=== PATIENT | female | born 1995 | race Caucasian/White ===

== ENCOUNTER 2016-12-29 16:47 | Emergency (ER) | payer BC ==
[~2016-12-29] VITALS: Ht 175.3 cm; Wt 73.5 kg
[~2016-12-29 16:47] MED LIST: HYDR-971 PO; IBUP-1007 PO; NAPR550T PO; NORG1TAB6 PO
[2016-12-29 17:06] VITALS: BP 103/65
[2016-12-29 17:21] LABS: BILIRUBIN,URINE NEGATIVE (NEG); GLUCOSE,URINE NEGATIVE (NEG); NITRITE,URINE NEGATIVE (NEG); PROTEIN,URINE NEGATIVE (NEG-TRACE)
[2016-12-29 17:34] LABS: BACTERIA,URINE FEW /HPF (0-FEW); RBC,URINE 0 /HPF (0-2); SQUAMOUS EPITHELIAL CELL,UR FEW /LPF; WBC,URINE OCC /HPF (0-4)
[2016-12-29] MEDS ORDERED: SENN-37 PO (17:39)
[2016-12-29] MEDS ORDERED: POLY17PO5 PO (17:39)
--- NOTE | 2016-12-29 17:39 | PHYS DOC ---
Past Medical History Past Medical History: Anxiety, Bipolar, Constipation Additional Past Medical Histor: Ectopic Past Surgical History: Other Additional Past Surgical Histo: Laparoscopy, ectopic Alcohol Use: Occasionally Drug Use: Opiates Adult General Chief Complaint Chief Complaint: CONSTIPATION HPI HPI 21-year-old female presenting to the emergency department today with constipation. She reports not having a bowel movement for 2 weeks. She complains of mild abdominal pain that is intermittent and without alleviating factors. It is associated with not defecating. She denies nausea or vomiting. She denies fevers or chills. She has been able to eat without any difficulty. Review of systems is negative for chest pain shortness of breath nausea vomiting diarrhea. Positive for constipation. All other review of systems is negative unless otherwise noted in history of present illness. Review of Systems Review of Systems SEE ABOVE. Allergies Allergies Allergies Coded Allergies Type Severity Reaction Last Updated Verified No Known Drug Allergies 04/10/14 No Physical Exam Physical Exam Constitutional: Well developed, well nourished, no acute distress, non-toxic appearance. HENT: Normocephalic, atraumatic, bilateral external ears normal, oropharynx moist, no oral exudates, nose normal. [] Eyes: PERRLA, EOMI, conjunctiva normal, no discharge. [] Neck: Normal range of motion, no tenderness, supple, no stridor. Cardiovascular:Heart rate regular rhythm, no murmur [] Lungs & Thorax: Bilateral breath sounds clear to auscultation Abdomen: Soft nontender abdomen without rebound tenderness or guarding present. Negative McBurneys point. Negative Phillips sign. No ecchymosis present. Skin: Warm, dry, no erythema, no rash. Back: No tenderness, no CVA tenderness. [] Extremities: No tenderness, no cyanosis, no clubbing, ROM intact, no edema. [] Neurologic: Alert and oriented X 3, normal motor function, normal sensory function, no focal deficits noted. Psychologic: Affect normal, judgement normal, mood normal. [] Current Patient Data Vital Signs Vital Signs Date Time Temp Pulse Resp B/P Pulse Ox O2 Delivery O2 Flow Rate FiO2 12/29/16 17:06 98.5 78 18 103/65 97 Room Air 98.5 Lab Values Laboratory Tests Test 12/29/16 17:02 POC Urine HCG, Qualitative Hcg negative (Negative) EKG EKG [] Radiology/Procedures Radiology/Procedures [] Course & Med Decision Making Course & Med Decision Making Pertinent Labs and Imaging studies reviewed. (See chart for details) [] 21-year-old female presenting to the emergency department with abdominal pain. Vital signs unremarkable. Abdominal exam unremarkable. Nontender appendix. Nontender gallbladder. The patient was given oral laxatives here in the emergency department and discharged home on oral laxatives to follow-up with her primary care physician over the next 2-3 days. test negative. Dragon Disclaimer Dragon Disclaimer This electronic medical record was generated, in whole or in part, using a voice recognition dictation system. Departure Departure Impression: Primary Impression: Abdominal pain Disposition: HOME, SELF-CARE Condition: STABLE Referrals: REAGAN POSADA MD (PCP) Patient Instructions: Abdominal Pain, Constipation, Adult Additional Instructions: Thank you for allowing us to participate in your care today. Followup with your primary care physician in 3 days if your symptoms do not improve. If you do not have a primary care provider you can ask for a list of our primary care providers. Return to the emergency department you have any new or concerning findings. This should be evaluated by the primary care physician and any necessary consulting services for continued management within a few days after discharge. Return to emergency room if you have any new or concerning symptoms including but not limited to fever, chills, nausea, vomiting, intractable pain, any new rashes, chest pain, shortness of air, uncontrolled bleeding, difficulty breathing, and/or vision loss. Scripts Sennosides/Docusate Sodium (Senokot-S Tablet)1 Each Tablet1 Tab PO BID #30 TAB Prov:ANU THOMAS MD 12/29/16 Polyethylene Glycol 3350 (Miralax)17 Gm Powd.pack1 Packet PO DAILY #30 PACKET Ref 3 Prov:ANU THOMAS MD 12/29/16 ANU THOMAS MD Dec 29, 2016 17:39
[2016-12-29] MEDS ORDERED: POLYETHYLENE GLYCOL 3350 17 GM PACKET. PO ONE (18:00)
[2016-12-29] MEDS ORDERED: SENNOSIDES 8.6 MG TABLET PO ONE (18:00)
[2016-12-29] MEDS ORDERED: MAGNESIUM HYDROXIDE 2,400 MG/30 ML ORAL.SUSP. PO ONE (18:00)
[2016-12-29] MEDS ORDERED: DOCUSATE SODIUM 100 MG CAPSULE PO ONE (18:00)
== END 2016-12-29 17:56 | disposition home or self-care (01) ==
LOC: ER 16:47
DX: R10.9 Unspecified abdominal pain (principal); K59.00 Constipation, unspecified; F41.9 Anxiety disorder, unspecified; F31.9 Bipolar disorder, unspecified; F11.10 Opioid abuse, uncomplicated
CPT/HCPCS: 81001; 81025; 99284